=== PATIENT | male | born 1990 | race Hispanic/Latino ===

== ENCOUNTER 2021-12-27 18:49 | Emergency (ER) | payer SELFPAY ==
--- NOTE | 2021-12-27 19:52 | RAD REPORT ---
EXAM DESCRIPTION: CT - [id number] - 12/27/2021 7:41 pm CLINICAL HISTORY: head injury skateboarding COMPARISON: No comparisons TECHNIQUE: Axial 5 mm thick images of the head were obtained. Axial 2 mm thick images of the cervic al spine were obtained with sagittal and coronal reconstruction images generated and reviewed. All CT scans are performed using dose optimization technique as appropriate and may include automated exposure control or mA/KV adjustment according to patient size. FINDINGS: No intracranial hemorrhage, mass, edema or acute intracranial finding. No suspicion for ac lorenzo infarction. No extra-axial fluid collections. Mastoid air cells and paranasal sinuses are clear. No globe or orbit abnormality seen. Cervical body height and alignment are normal. No disk space narrowing. No fracture or acute bony abn ormality. Central canal detail is inherently limited. No paraspinal mass or hematoma. IMPRESSION: Negative CT head examination for acute or significant finding. Negative CT cervical spine examination for acute or significant finding.
[2021-12-27 20:11] LABS: Absolute Lymphocytes (CBC) 1.2 K/uL (0.7-4.9); Hematocrit 46.6 % (39.6-49.0); Lymphocytes % 10.3 % (15.3-44.8); MCV 88.9 fL (80-100); MPV 8.1 fL (7.6-11.3); RBC Red Blood Cell Count 5.24 M/uL (4.33-5.43)
[2021-12-27 20:25] LABS: Protime INR 1.06
--- NOTE | 2021-12-27 20:36 | ER ---
Nurse's Notes [facility] Name: Mainor Clark Age: 31 yrs Sex: Male : 1990 Arrival Date: 12/27/2021 Time: 18:50 Bed 2 Private MD: Diagnosis: Contusion of unspecified part of head, initial encounter;Alcohol use, unspecified Presentation: 12/27 18:57 Chief complaint: Patient states: Patient fell off skate board and was dizzy with db difficulty ambulating. Positive ETOH. Was combative with EMS prior to arrival. EMS and police on scene. A bystander called 911 EMS states: Patient fell off skate board and was dizzy with difficulty ambulating. Positive ETOH. Was combatitve with EMS prior to arrival. EMS and police on scene. A bystander called 911. Care prior to arrival: None. Mechanism of Injury: Fall skate board. Trauma event details: Injury occurred in the [facility]. Activity prior to arrival: combative. 18:57 Acuity: ABIGAIL 2 db 18:57 Method Of Arrival: EMS: [facility] db 20:47 Coronavirus screen: Vaccine status:. Ebola Screen: No symptoms or risks identified at 3 this time. Initial Sepsis Screen: Does the patient meet any 2 criteria? No. Patient's initial sepsis screen is negative. Does the patient have a suspected source of infection? No. Patient's initial sepsis screen is negative. Risk Assessment: Do you want to hurt yourself or someone else? Patient reports no desire to harm self or others. Onset of symptoms was December 27, 2021. Trauma Activation: Alert Physician: ED Physician; Name: Cassi; Notified At: 19:01; Arrived At: Physician: General Surgeon; Name: ; Notified At: 19:01; Arrived At: Physician: Radiology; Name: ; Notified At: 19:01; Arrived At: Physician: Respiratory; Name: ; Notified At: 19:01; Arrived At: Physician: Lab; Name: ; Notified At: 19:01; Arrived At: Historical: - Allergies: 20:47 No Known Allergies; kd3 - Immunization history: Last tetanus immunization: unknown. - Social history:: Smoking status: Patient reports the use of cigarette tobacco products, smokes one-half pack cigarettes per day. Screenin:58 Abuse screen: Denies threats or abuse. Denies injuries from another. Tuberculosis db screening: No symptoms or risk factors identified. 20:47 Nutritional screening: No deficits noted. Fall Risk None identified. kd3 Primary Survey: 18:57 NO uncontrolled hemorrhage observed. A: The client is awake and alert. The airway is db patent. The client is alert. Airway: patent. Breathing/Chest: Spontaneous respiratory effort, equal unlabored respirations, breath sounds clear bilaterally, regular pattern, symmetrical chest rise and fall. Circulation: No external hemorrhage present. Regular and strong central pulse, skin warm/dry/normal color. Disability Pupils are equal, round, reactive to light and accommodation. Client is alert. Exposure/Environment: A warming method has been applied: A warm blanket has been provided to the patient. Reassessment Alertness and Airway: Awake and alert. The airway is patent. Breathing: Spontaneous respiratory effort, equal unlabored respirations, breath sounds clear bilaterally, regular pattern with symmetrical chest rise and fall. Circulation: No external hemorrhage noted. Regular and strong central pulse, skin warm/dry/normal color. Disability: Pupils Pupils are equal, round, reactive to light and accomodation. Alert. Assessment: 18:57 General: Appears in no apparent distress. comfortable, Behavior is cooperative, Smells db of alcohol. Pain: Denies pain. Vital Signs: 18:58 BP 136 / 93; Pulse 99; Resp 16; Temp 98.4; Pulse Ox 95% on R/A; Weight 63.05 kg; Height db 5 ft. 5 in. (165.10 cm); 18:58 Body Mass Index 23.13 (63.05 kg, 165.10 cm) db Ramirez Coma Score: 18:58 Eye Response: spontaneous(4). Verbal Response: oriented(5). Motor Response: obeys db commands(6). Total: 15. 19:20 Eye Response: spontaneous(4). Verbal Response: oriented(5). Motor Response: obeys cp commands(6). Total: 15. Trauma Score (Adult): 18:58 Eye Response: spontaneous(1); Verbal Response: oriented(1); Motor Response: obeys db commands(2); Systolic BP: > 89 mm Hg(4); Respiratory Rate: 10 to 29 per min(4); Dr[place]ut Score: 15; Trauma Score: 12 ED Course: 18:50 Patient arrived in ED. ss 18:58 Patient has correct armband on for positive identification. Side rails up X 1. db 18:58 Patient maintains SpO2 saturation greater than 95% on room air. db 19:01 Triage completed. db 19:04 Allen Hogan PA is PHCP. cp 19:04 Mahi Dillard MD is Attending Physician. cp 19:43 CT Head C Spine In Process Unspecified. EDMS 20:46 Sandra Parra, RN is Primary Nurse. kd3 20:47 No provider procedures requiring assistance completed. IV discontinued, intact, kd3 bleeding controlled, No redness/swelling at site. Pressure dressing applied. 20:48 Arm band placed on. kd3 20:48 Thermoregulation: warm blanket given to patient. kd3 Administered Medications: No medications were administered Medication: 20:48 VIS not applicable for this client. kd3 Intake: 20:48 PO: 150ml; Total: 150ml. kd3 Outcome: 20:36 Discharge ordered by . cp 20:47 Discharged to home ambulatory. kd3 20:47 Condition: stable 20:47 Discharge instructions given to patient, Instructed on discharge instructions, Demonstrated understanding of instructions. 20:48 Patient's length of stay was not longer than 2 hours. kd3 20:48 Patient left the ED. kd3 Signatures: Dispatcher [employer] EDKS Radha Gomez RN RN Allen Hogan PA PA cp Doucette, Kyli, RN RN kd3 Charity Biswas RN RN db
--- NOTE | 2021-12-27 20:36 | EDPHYS ---
Physician Documentation [facility] Name: Mainor Clark Age: 31 yrs Sex: Male : 1990 Arrival Date: 12/27/2021 Time: 18:50 Bed 2 Private MD: ED Physician Mahi Dillard HPI: 12/27 19:10 This 31 yrs old Male presents to ER via EMS with complaints of Head Injury cp Without LOC-Adult, ETOH Abuse. 19:10 The patient or guardian reports injury. Context of injury: resulted from a fall. cp Historical: - Allergies: 20:47 No Known Allergies; kd3 - Immunization history: Last tetanus immunization: unknown. - Social history:: Smoking status: Patient reports the use of cigarette tobacco products, smokes one-half pack cigarettes per day. ROS: 19:15 All other systems are negative. cp Exam: 19:20 Constitutional: The patient appears in no acute distress, alert, awake, well developed, cp well nourished. 19:20 Head/Face: Normocephalic, atraumatic. cp 19:20 Eyes: Periorbital structures: appear normal, Pupils: equal, round, and reactive to light and accomodation, Extraocular movements: intact throughout, Lids and lashes: appear normal, bilaterally. 19:20 Chest/axilla: Inspection: normal, Palpation: is normal, no crepitus, no tenderness. 19:20 Cardiovascular: Rate: normal, Rhythm: regular. 20:11 ECG was reviewed by the Attending Physician. cp Vital Signs: 18:58 BP 136 / 93; Pulse 99; Resp 16; Temp 98.4; Pulse Ox 95% on R/A; Weight 63.05 kg; Height db 5 ft. 5 in. (165.10 cm); 18:58 Body Mass Index 23.13 (63.05 kg, 165.10 cm) db [place] Coma Score: 18:58 Eye Response: spontaneous(4). Verbal Response: oriented(5). Motor Response: obeys db commands(6). Total: 15. 19:20 Eye Response: spontaneous(4). Verbal Response: oriented(5). Motor Response: obeys cp commands(6). Total: 15. Trauma Score (Adult): 18:58 Eye Response: spontaneous(1); Verbal Response: oriented(1); Motor Response: obeys db commands(2); Systolic BP: > 89 mm Hg(4); Respiratory Rate: 10 to 29 per min(4); Ramirez Score: 15; Trauma Score: 12 MDM: 19:04 Patient medically screened. cp 20:35 Data reviewed: vital signs, nurses notes, radiologic studies, CT scan. 12/27 19:13 Order name: Acetaminophen 12/27 19:13 Order name: Basic Metabolic Panel 12/27 19:13 Order name: CBC with Diff; Complete Time: 20:31 cp 12/27 20:32 Interpretation: Reviewed. 12/27 19:13 Order name: ETOH Level 12/27 19:13 Order name: Hepatic Function 12/27 19:13 Order name: PT-INR; Complete Time: 20:31 cp 12/27 18:51 Order name: CT Head C Spine; Complete Time: 20:05 rn 12/27 20:06 Interpretation: Reviewed report. 12/27 19:13 Order name: Ptt, Activated; Complete Time: 20:31 cp 12/27 19:13 Order name: Salicylate cp 12/27 19:13 Order name: EKG; Complete Time: 19:14 cp 12/27 19:13 Order name: EKG - Nurse/Tech; Complete Time: 20:08 cp 12/27 19:13 Order name: IV Saline Lock; Complete Time: 20:08 cp 12/27 19:13 Order name: Labs collected and sent; Complete Time: 20:08 12/27 19:13 Order name: Suicide Screening ([place]); Complete Time: 20:35 cp EC:11 Rate is 85 beats/min. Rhythm is regular. NE interval is normal. QRS interval is normal. cp QT interval is normal. T waves are Inverted in leads aVL, aVR. Interpreted by me. Reviewed by me. Administered Medications: No medications were administered Disposition: 21:00 STAFF ATTESTATION: The patient's history, exam findings, diagnostics and a summary of sd2 any interventions or procedures was reviewed in detail with the ED SIDDHARTHA. Pt left the ER prior to me being able to evaluate the patient and was unwilling to wait or stay for further evaluation. I confirm the diagnosis as documented by the SIDDHARTHA and I agree with the care plan articulated in the disposition section with regards to our discussion of the patient's case. Mahi Dillard MD. Disposition Summary: 12/27/21 20:36 Discharge Ordered Location: Home cp Problem: new cp Symptoms: have improved cp Condition: Stable cp Diagnosis - Contusion of unspecified part of head, initial encounter cp - Alcohol use, unspecified cp Followup: cp - With: Private Physician - When: 1 - 2 days - Reason: Recheck today's complaints Discharge Instructions: - Discharge Summary Sheet cp - Alcohol Use Disorder cp - Head Injury, Adult cp Forms: - Medication Reconciliation Form cp - Thank You Letter cp - Antibiotic Education cp - Prescription Opioid Use cp Signatures: Dispatcher [employer] EDMS Allen Hogan PA PA cp Sandra Parra RN RN kd3 Mahi Dillard MD MD sd2 Charity Biswas RN RN db Corrections: (The following items were deleted from the chart) 12/28 20:47 20:46 This 31 yrs old Male presents to ER via EMS with complaints of Head cp Injury Without LOC-Adult, ETOH Abuse. cp
[2021-12-27 20:44] LABS: ALT/SGPT 26 U/L (12-78); Albumin 4.1 g/dL (3.4-5.0); Alkaline Phosphatase 79 U/L (45-117); BUN Blood Urea Nitrogen 7 mg/dL (7-18); Bicarbonate 26 mmol/L (21-32); Bilirubin Total 0.3 mg/dL (0.2-1.0); Glomerular Filtration Rate 114 ml/min (=/>90); Glucose Level 109 mg/dL (74-106); Protein, Total 7.8 g/dL (6.4-8.2); Sodium Level 141 mmol/L (136-145)
[2021-12-27 20:45] LABS: AST/SGOT 20 U/L (15-37); Bilirubin Direct < 0.1 mg/dL (0-0.2); Potassium 3.7 mmol/L (3.5-5.1)
--- NOTE | 2021-12-28 14:09 | EKG ---
Test Date: 2021-12-27 Test Time: 20:02:58 Travel Physical Therapist: YUE MEASUREMENT RESULTS: Intervals: Rate: 85 MA: 138 QRSD: 88 QT: 362 QTc: 430 Stark: P: 81 MA: 138 QRS: 78 T: 76 INTERPRETIVE STATEMENTS: Normal sinus rhythm Normal ECG Compared to ECG 12/19/2009 13:29:35 No significant changes Electronically Signed On 12-28-21 14:08:08 CDT by Reji Lindsey
[2021-12-29 16:40] VITALS: BP 136/93; TEMP 98.4; O2SAT 95
== END 2021-12-27 20:48 | disposition home or self-care (01) ==
LOC: ER 18:49
DX: S00.83XA Contusion of other part of head, initial encounter (principal); Z72.89 Other problems related to lifestyle; F17.210 Nicotine dependence, cigarettes, uncomplicated
CPT/HCPCS: 36415; 70450; 72125; 80048; 80076; 80320; 80329; 85025; 85610; 85730; 93005; 99284